=== PATIENT | male | born 2000 | race Caucasian/White ===

== ENCOUNTER 2021-07-18 15:04 | Emergency (ER) | payer OTHER ==
[~2021-07-18] VITALS: Ht 180.3 cm; Wt 87.6 kg
[2021-07-18] MEDS ORDERED: NEOSPORIN TOP OINT 15GM TOP ONE (18:30)
[2021-07-18] MEDS ORDERED: BACI500O8 TOP (18:34)
[2021-07-18] MEDS ORDERED: [UNRECOGNIZED DRUG - SUPPLY] XX (18:35)
[2021-07-18] MEDS ORDERED: [UNRECOGNIZED DRUG - CODE] XX (18:37)
[2021-07-18 18:49] VITALS: BP 131/67
== END 2021-07-18 18:50 | disposition home or self-care (01) ==
LOC: M ED 15:04
DX: T33.531A Superficial frostbite of right finger(s), initial encounter (principal); T33.532A Superficial frostbite of left finger(s), initial encounter; F17.200 Nicotine dependence, unspecified, uncomplicated; X31.XXXA Exposure to excessive natural cold, initial encounter; Y92.9 Unspecified place or not applicable; Y93.9 Activity, unspecified; Y99.1 Military activity

== ENCOUNTER 2023-02-16 03:11 | Emergency (ER) | payer OTHER ==
[~2023-02-16] VITALS: Ht 180.3 cm; Wt 100.4 kg
[~2023-02-16 03:11] MED LIST: BACI500O8 TOP; [UNRECOGNIZED DRUG - CODE] XX; [UNRECOGNIZED DRUG - SUPPLY] XX
[2023-02-16 03:47] VITALS: BP 138/79; TEMP 98.6; O2SAT 98
[2023-02-16] MEDS ORDERED: NS 1,000 ML IV ONE (04:35)
== END 2023-02-16 06:02 | disposition home or self-care (01) ==
LOC: M ED 03:11
DX: S06.30AA Unspecified focal traumatic brain injury with loss of consciousness status unknown, initial encounter (principal); Y09 Assault by unspecified means